=== PATIENT | male | born 2000 | race Caucasian/White ===

== ENCOUNTER → 2024-09-21 | Outpatient (CLI) | payer SELFPAY, BC ==
--- NOTE | 2024-09-21 08:45 | US_ITS ---
PROCEDURE: Right upper quadrant ultrasound REASON FOR EXAM: ABDOMINAL PAIN COMPARISON: None FINDINGS: Liver: Grossly normal size and echotexture. Gallbladder: No stones, sludge, wall thickening or tenderness. Common bile duct: Normal measuring . Pancreas: Visualized portions are sonographically unremarkable. Nonspecific mild right hydronephrosis. US/Abdomen Limited IMPRESSION: Nonspecific mild right hydronephrosis. Please correlate and consider further a ssessment with CT if indicated. Reading Location: [facility]
== END | disposition home or self-care (01) ==
PROVIDERS: Referring Provider Nurse Practitioner Acute Care; Visit Provider Nurse Practitioner Acute Care
DX: R10.13 Epigastric pain (principal); R10.11 Right upper quadrant pain
CPT/HCPCS: 76705

== ENCOUNTER → 2024-10-12 | Outpatient (CLI) | payer BC, SELFPAY ==
[2024-10-12 08:42] LABS: Anion Gap 9 (5-15); BUN 19 mg/dL (4-19); Calcium,Total 9.7 mg/dL (7.6-11.0); Chloride 104 mmol/L (98-108); Cholesterol 123 mg/dL (<=200); Creatinine, Serum 0.88 mg/dL (0.70-1.20); EST Glomerular Filtration Rate 122 (>60); Glucose 99 mg/dL (70-99); High Density Lipoprotein 50 mg/dL; Low Density Lipoprotein Calc. 68 mg/dL; Potassium 4.3 mmol/L (3.3-5.1); Sodium Level 140 mmol/L (133-145); Triglycerides 25 mg/dL; Very Low Density Lipoprotein 5 mg/dL (5-40); cholesterol:hdl ratio screen 2.47
== END | disposition home or self-care (01) ==
LOC: LAB 07:32
PROVIDERS: PCP Family Medicine; Referring Provider Family Medicine; Visit Provider Family Medicine
DX: Z00.00 Encounter for general adult medical examination without abnormal findings (principal)
CPT/HCPCS: 36415; 80048; 80061

== ENCOUNTER → 2024-11-05 | Outpatient (CLI) | payer BC, SELFPAY ==
[2024-11-05 17:27] LABS: AST(SGOT) 25 U/L (<=37); Alanine Aminotransfer ALT/SGPT 27 U/L (<=46); Albumin, Serum 4.5 g/dL (3.5-5.0); Alkaline Phosphatase 72 U/L (40-129); Bilirubin, Direct 0.26 mg/dL (0.00-0.30); Globulin 2.2 g/dL (2.2-4.2); Protein, Total 6.8 g/dL (5.9-8.4); Total Bilirubin 0.57 mg/dL (0.00-1.30)
== END | disposition home or self-care (01) ==
LOC: LAB 15:48
PROVIDERS: PCP Family Medicine; Referring Provider Nurse Practitioner Acute Care; Visit Provider Nurse Practitioner Acute Care
DX: R10.13 Epigastric pain (principal); R12 Heartburn
CPT/HCPCS: 36415; 80076

== ENCOUNTER 2024-11-19 05:34 | Day surgery (SDC) | payer BC, SELFPAY ==
[2024-11-19] VITALS (7 sets, daily range): BP systolic 106–122; BP diastolic 66–78; PULSE 56–66; RESP 14–16; TEMP 36.1–36.8; O2SAT 97–100; BMI 24.9
[2024-11-19] MEDS: Lactated Ringers 1,000 ML 15 ML IV (06:07)
--- NOTE | 2024-11-19 06:14 | PRE.ANES_ITS ---
ASA Classification* ASA Classification ASA Classification: 2 Assessment & Plan Anesthesia* Anesthesia Assessment Anesthesia Assessment: Discussed sedation and/or anesthesia options, risks, benefits, and alternatives with patient/parents/legal guardian/POA. Questions invited. The patient/parents/legal guardian/POA seems to understand and agrees to proceed with anesthesia plan. Reviewed the physical assessment, medical history, allergy history and patient home medications list prior to surgery/procedure/anesthetic and documented any changes. Performed airway and anesthesia risk assessments. Anesthesia Type Anesthesia Type: MAC History Source History Obtained from:: Patient Anesthesia Focused Assessment* Temperature: 98.2 F Pulse Rate: 66 Blood Pressure: 122/78 Respiratory Rate: 16 Pulse Ox: 100 Oxygen Delivery Method: Room Air Airway Assessment Mouth opens: >3 cm Mallampati Score: II Teeth Condition: Intact Focused Labs Anesthesia Preop lab: CBC CHEMISTRY Potassium 4.3 mmol/L (3.3-5.1) 10/12/24 07:45 10/12/24 Sodium 140 mmol/L (133-145) 10/12/24 07:45 10/12/24 BUN 19 mg/dL (4-19) 10/12/24 07:45 10/12/24 Creatinine 0.88 mg/dL (0.70-1.20) 10/12/24 07:45 10/12/24 Glucose 99 mg/dL (70-99) 10/12/24 07:45 10/12/24 COAG Pre-Assessment Diagnosis/Proposed Procedure Planned Operative Procedure(s): egd Anesthesia History 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 When Was Last Pacemaker Check QUESTION #4 FULL TEXT: You/Your Family Experience fever (hyperthermia) with Anesthesia Last Oral Intake Last Oral intake: Last Oral Intake NPO since 00:00 11/19/24 06:09 Meds taken in AM with sips of Yes 11/19/24 06:09 water? Meds patient instructed to omeprazole 11/19/24 06:09 take am of surgery PONV PONV - production packager: PONV - production packager Female No 11/14/24 08:28 HX of Motion Sickness No 11/14/24 08:28 HX of N/V After Surgery No 11/14/24 08:28 Non-Smoker Yes 11/14/24 08:28 Duration of Surgery greater No 11/14/24 08:28 than 60 minutes Number of Risk Factors 1 11/14/24 08:28 PONV Score Low Risk 11/14/24 08:28 Height & Weight Height & Weight: Anesthesia: Height & Weight Height 6 ft 3 in 11/19/24 06:09 Weight: 90.5 kg 11/19/24 06:09 Body Mass Index (BMI) 24.9 11/19/24 06:09 Respiratory Assessment Respiratory Assessment - production packager: Respiratory Tract Infection Hx - production packager Hx Respiratory Tract Infection No 11/14/24 08:28 STOP Sleep Apnea STOP Sleep Apnea - production packager: STOP Sleep Apnea - production packager Hx Hypertension No 11/14/24 08:28 Hx Sleep Apnea No 11/14/24 08:28 CPAP BIPAP Do you snore loudly (louder No 11/14/24 08:28 than talking or can be heard Do you often feel tired/ No 11/14/24 08:28 fatigued/ sleepy during daytime? Has anyone observed you stop No 11/14/24 08:28 breathing during sleep? STOP Results Negative 11/14/24 08:28 QUESTION #5 FULL TEXT : Do you snore loudly (louder than talking or can be heard through closed doors)? 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 Specify any problems Hx of Preganancy in last 3 N/A 11/14/24 08:28 Months Nurse Filling Out Transfusion [facility] 11/14/24 08:28 & Questions: Date: 11/14/24 11/14/24 08:28 Time: 08:29 11/14/24 08:28 Patient unable to answer at this time (ie. confused, unrespo /Reproduction History /Reproductive History - production packager: /Reproductive Hx- production packager Hx Now No 11/14/24 08:28 Gestational Age (in weeks): EDC: Hx Hx Para Hx Section SAB No 11/14/24 08:28 Active Medications Active Medications: Current Medications Generic Name Dose Route Start Last Admin Trade Name Freq PRN Reason Stop Dose Admin Lactated Ringer's 1,000 mls @ 15 mls/hr 11/19/24 05:45 11/19/24 06:07 IV 15 mls/hr .Q48H UMA Administration PFSH Medical History Gastric reflux Non-smoker Home Medications ?Medication ?Instructions ?Recorded ?Last Taken ?Type omeprazole 40 mg capsule,delayed 40 mg PO QDAY #90 cap s 11/05/24 11/19/24 Rx release Allergy/AdvReac Type Severity Reaction Status Date / Time azithromycin Allergy Other Verified 11/14/24 08:28 Surgical History History of ankle surgery Social History Smoking Status: Never smoker alcohol intake: never Review of Systems (Anesthesia) ROS Narrative System reviewed and no additional complaints, except as documented. Physical Exam Const alert and oriented x3 Orientation / Consciousness: awake Resp normal respiratory effort Cardio regular rate
--- NOTE | 2024-11-19 06:23 | PRE.ANES_ITS ---
ASA Classification* ASA Classification ASA Classification: 2 Assessment & Plan Anesthesia* Anesthesia Assessment Anesthesia Assessment: Discussed sedation and/or anesthesia options, risks, benefits, and alternatives with patient/parents/legal guardian/POA. Questions invited. The patient/parents/legal guardian/POA seems to understand and agrees to proceed with anesthesia plan. Reviewed the physical assessment, medical history, allergy history and patient home medications list prior to surgery/procedure/anesthetic and documented any changes. Performed airway and anesthesia risk assessments. Anesthesia Type Anesthesia Type: MAC Anesthesia Focused Assessment* Temperature: 98.2 F Pulse Rate: 66 Blood Pressure: 122/78 Respiratory Rate: 16 Pulse Ox: 100 Airway Assessment Mouth opens: >3 cm Mallampati Score: II Focused Labs Anesthesia Preop lab: CBC CHEMISTRY Potassium 4.3 mmol/L (3.3-5.1) 10/12/24 07:45 10/12/24 Sodium 140 mmol/L (133-145) 10/12/24 07:45 10/12/24 BUN 19 mg/dL (4-19) 10/12/24 07:45 10/12/24 Creatinine 0.88 mg/dL (0.70-1.20) 10/12/24 07:45 10/12/24 Glucose 99 mg/dL (70-99) 10/12/24 07:45 10/12/24 COAG Pre-Assessment Diagnosis/Proposed Procedure Planned Operative Procedure(s): egd Anesthesia History 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 When Was Last Pacemaker Check QUESTION #4 FULL TEXT: You/Your Family Experience fever (hyperthermia) with Anesthesia Last Oral Intake Last Oral intake: Last Oral Intake NPO since 00:00 11/19/24 06:09 Meds taken in AM with sips of Yes 11/19/24 06:09 water? Meds patient instructed to omeprazole 11/19/24 06:09 take am of surgery PONV PONV - director data architecture: PONV - director data architecture Female No 11/14/24 08:28 HX of Motion Sickness No 11/14/24 08:28 HX of N/V After Surgery No 11/14/24 08:28 Non-Smoker Yes 11/14/24 08:28 Duration of Surgery greater No 11/14/24 08:28 than 60 minutes Number of Risk Factors 1 11/14/24 08:28 PONV Score Low Risk 11/14/24 08:28 Height & Weight Height & Weight: Anesthesia: Height & Weight Height 6 ft 3 in 11/19/24 06:09 Weight: 90.5 kg 11/19/24 06:09 Body Mass Index (BMI) 24.9 11/19/24 06:09 Respiratory Assessment Respiratory Assessment - director data architecture: Respiratory Tract Infection Hx - director data architecture Hx Respiratory Tract Infection No 11/14/24 08:28 STOP Sleep Apnea STOP Sleep Apnea - director data architecture: STOP Sleep Apnea - director data architecture Hx Hypertension No 11/14/24 08:28 Hx Sleep Apnea No 11/14/24 08:28 CPAP BIPAP Do you snore loudly (louder No 11/14/24 08:28 than talking or can be heard Do you often feel tired/ No 11/14/24 08:28 fatigued/ sleepy during daytime? Has anyone observed you stop No 11/14/24 08:28 breathing during sleep? STOP Results Negative 11/14/24 08:28 QUESTION #5 FULL TEXT : Do you snore loudly (louder than talking or can be heard through closed doors)? 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 Specify any problems Hx of Preganancy in last 3 N/A 11/14/24 08:28 Months Nurse Filling Out Transfusion [facility] 11/14/24 08:28 & Questions: Date: 11/14/24 11/14/24 08:28 Time: 08:29 11/14/24 08:28 Patient unable to answer at this time (ie. confused, unrespo /Reproduction History /Reproductive History - director data architecture: /Reproductive Hx- director data architecture Hx Now No 11/14/24 08:28 Gestational Age (in weeks): EDC: Hx Hx Para Hx Section SAB No 11/14/24 08:28 Active Medications Active Medications: Current Medications Generic Name Dose Route Start Last Admin Trade Name Freq PRN Reason Stop Dose Admin Lactated Ringer's 1,000 mls @ 15 mls/hr 11/19/24 05:45 11/19/24 06:07 IV 15 mls/hr .Q48H UMA Administration PFSH Medical History Gastric reflux Non-smoker Home Medications ?Medication ?Instructions ?Recorded ?Last Taken ?Type omeprazole 40 mg capsule,delayed 40 mg PO QDAY #90 cap s 11/05/24 11/19/24 Rx release Allergy/AdvReac Type Severity Reaction Status Date / Time azithromycin Allergy Other Verified 11/14/24 08:28 Surgical History History of ankle surgery Social History Smoking Status: Never smoker alcohol intake: never Review of Systems (Anesthesia) ROS Narrative System reviewed and no additional complaints, except as documented.
--- NOTE | 2024-11-19 06:30 | EGD_PTH ---
PATIENT: PITO ABREU LOC: [facility] U#:[id number] AGE/SX: 23/M ROOM: RE11/19/[address]: Dr. Addy Almanza DO : 2000 BED: DIS: 11/19/2024 SPEC #: [id number] RECD: 11/19/24 12:10 STATUS: ISATU LIGIA #: [id number] LEODAN: 11/19/24 06:[address]: Addy Almanza DEPT: SURGICAL PATHOLOGY RECD BY: Deyvi Phillips ENTERED: 11/19/24 13:06 SP TYPE: EGD BIOPSY MYA DR: Dr. Christo Field MD Tissues: A - Gastric mucous membrane B - Duodenum, NOS C - Esophagus, NOS Procedures: Surgery Specimen Level IV HEADER OPERATION: EGD with biopsies PRE-OP DIAGNOSIS: Nausea, heartburn, dyspepsia, right upper quadrant pain, epigastric pain TISSUE SUBMITTED: A- Gastric body biopsy, B- Duodenum biopsy, C- Random esophagus biopsy MICROSCOPIC DIAGNOSIS A. Stomach, gastric body, biopsy: * Oxyntic mucosa with mild chronic inflammation * No morphologic evidence of Helicobacter pylori organisms B. Small bowel, duodenum, biopsy: * Small bowel mucosa with no pathologic change C. Esophagus, random, biopsy: * Squamous epithelium with no pathologic change MICROSCOPIC DESCRIPTION Slides are reviewed. GROSS DESCRIPTION A. Received in fixative is one container labeled with the patient's name and designated Gastric body biopsy. The specimen consists of multiple irregular fragments of light schaeffer soft tissue that in aggregate measure 1.5 x 0.2 x 0.2 cm. The specimen is totally submitted in one cassette. B. Received in fixative is one container labeled with the patient's name and designated Duodenum biopsy. The specimen consists of multiple irregular fragments of light schaeffer soft tissue that in aggregate measure 1.6 x 0.3 x 0.2 cm. The specimen is totally submitted in one cassette. C. Received in fixative is one container labeled with the patient's name and designated Random esophagus biopsy. The specimen consists of multiple irregular fragments of light schaeffer soft tissue that in aggregate measure 1.3 x 0.3 x 0.2 cm. The specimen is totally submitted in one cassette. 11/19/2024 CPT:60783k0
--- NOTE | 2024-11-19 06:42 | PCM.HP.STD ---
HPI - General General Date of Admission: 11/19/24 Date of Service: 11/19/24 Chief Complaint: abdominal pain HPI Narrative 23y/o male presents with complaints of heartburn, RUQ and epigastric pain. He was seen in urgent care two weeks ago with worsening of symptoms and completed a two week course of omeprazole 20mg daily. He reports a resolution in heartburn, but is continuing to experience bloating and belching. He has made significant dietary modifications. I have scheduled him for an ABD US and he will start omeprazole 40mg daily. He will follow-up in 8 weeks. Patient Instructions: Start Omeprazole 40mg daily - 8 weeks of therapy Complete ABD US Follow-up in 8 weeks If symptoms are persisting proceed with EGD If symptoms have resolved will plan to taper PPI and only proceed with EGD if symptoms return ABD US 09/21/2024 Nonspecific mild right hydronephrosis. Please correlate and consider further assessment with CT if indicated. - since starting Omeprazole he reports 50% improvement in HB and belching - symptoms are worse the first couple of hours after eating - larger meals cause more symptoms - c/o bloating but not as severe - reports resolution of RUQ pain - uncertain of trigger - he is making dietary modifications - avoiding spicy foods, red meat, OJ - denies any caffeine intake - makes symptoms much worse - avoids alcohol as this is also a trigger for symptoms - was drinking <12 pack a week, occasional crown and coke - denies any alcohol in the past 4 months - reports his weight is down 40lbs in the past 4 months since symptoms hit their peak ---- symptoms began summer/fall 2023 - nausea has improved, denies any emesis - reports a couple years ago he had lower esophageal dysphagia, but quit drinking alcohol and symptoms resolved in a month - states at this time he was drinking fantasma than a 12 pack a week - weight is down 17lbs in past 2 months - denies any change in bowel habits - denies any melena - denies any [facility] Medical History Gastric reflux Non-smoker Home Medications ?Medication ?Instructions ?Recorded ?Last Taken ?Type omeprazole 40 mg capsule,delayed 40 mg PO QDAY #90 caps 11/05/24 11/19/24 Rx release Allergy/AdvReac Type Severity Reaction Status Date / Time azithromycin Allergy Other Verified 11/14/24 08:28 Surgical History History of ankle surgery Social History Smoking Status: Never smoker alcohol intake: never ROS Constitutional Constitutional: Denies fatigue, fever(s), poor appetite, weight gain or weight loss Gastrointestinal Gastrointestinal: Denies belching, bloating, change in bowel habits, change in stool character, chewing difficulty, coffee ground emesis, constipation, cramping, diarrhea, dyspepsia, dysphagia, early satiety, excessive flatus, fecal incontinence, heartburn, hematemesis, hematochezia, hemorrhoids, loose stools, melena, nausea, odynophagia, rectal bleeding, tenesmus, vomiting or weight changes Vital Signs Vital Signs Vital Signs: 11/19/24 06:08 11/19/24 06:09 11/19/24 06:23 Temperature 98.2 F 98.2 F Temperature Source Temporal Pulse Rate 66 66 Respiratory Rate 16 16 Respiratory Pattern Normal Blood Pressure 122/78 H 122/78 H Blood Pressure Mean 92 Blood Pressure Source Monitor Blood Pressure Position Sitting Blood Pressure Location Left Arm Pulse Ox 100 100 Oxygen Delivery Method Room Air Room Air 11/19/24 06:24 Temperature 98.2 F Temperature Source Pulse Rate 66 Respiratory Rate 16 Respiratory Pattern Blood Pressure 122/78 H Blood Pressure Mean Blood Pressure Source Blood Pressure Position Blood Pressure Location Pulse Ox 100 Oxygen Delivery Method Weight Weight: 199 lb 8.293 oz Body Mass Index (BMI) 24.9 Physical Exam Const alert, oriented x3, no apparent distress and healthy appearing General Appearance: cooperative GI normal to inspection, nondistended, normoactive bowel sounds, soft to palpation, non-tender and non-distended Percussion: normal to percussion Rectal Exam: deferred Assessment & Plan Assessment/Plan (1) Nausea: (2) Heartburn: (3) Dyspepsia: (4) RUQ pain: (5) Epigastric pain: PLAN: Assessment and Plan Assessment and Plan (1) Epigastric pain: Status: Acute (2) Dyspepsia: Status: Acute (3) Heartburn: Status: Acute (4) Nausea: Status: Acute Orders: Orders Liver Profile Today R10.13 - Epigastric pain, R12 - Heartburn Medications: Refilled omeprazole take 30 minutes before breakfast every morning 40 mg PO QDAY 90 caps 0RF Plan 23-year-old male presents for 8-week follow-up of heartburn, dyspepsia, epigastric and RUQ pain. He was last seen in the office on 09/09/2024 and started on omeprazole 40 mg daily. Abdominal ultrasound was performed 09/21/2024 and revealed nonspecific mild right hydronephrosis and he was referred to primary care for follow-up. He remains on omeprazole 40 mg daily and reports resolution of RUQ pain. However he is continuing to experience epigastric pain, nausea, heartburn and dyspepsia with a 50% improvement on PPI daily. His weight is down 17 pounds in the past 8 weeks, with a reported 40 pound weight loss in the past 4 months. He reports making dietary modifications to alleviate symptoms. He also reports he was drinking approximately a 12 pack of beer weekly which he discontinued 4 months ago. He will remain on a PPI daily and proceed with a EGD. We have discussed the risks associated with chronic alcohol use, and I have recommended he continue to abstain from alcohol intake. He will complete a liver panel today. Patient Instructions: Continue PPI daily Continue to abstain from all alcohol intake Avoid trigger foods Proceed with EGD
--- NOTE | 2024-11-19 07:04 | OP.EGD_ITS ---
Patient Name: Ted Leahy Procedure Date: 11/19/2024 6:30 AM Date of : 2000 Age: 23 Procedure: Upper GI endoscopy Indications: Epigastric abdominal pain, Abdominal pain in the right upper quadrant, Functional Dyspepsia Providers: Addy Almanza DO Referring MD: Addy Almanza DO Medicines: Monitored Anesthesia Care Patient Profile: This is a 23 year old male. Refer to note in patient chart for documentation of history and physical. Patient has symptoms of acute abdominal cramping, acute right upper quadrant abdominal pain and acute dyspepsia. Complications: No immediate complications. Procedure: Pre-Anesthesia Assessment: - Prior to the procedure, a History and Physical was performed, and patient medications and allergies were reviewed. The patient is competent. The risks and benefits of the procedure and the sedation options and risks were discussed with the patient. All questions were answered and informed consent was obtained. Patient identification and proposed procedure were verified by the physician in the pre-procedure area. Mental Status Examination: alert and oriented. Airway Examination: normal oropharyngeal airway and neck mobility. Respiratory Examination: clear to auscultation. CV Examination: normal. ASA Grade Assessment: II - A patient with mild systemic disease. After reviewing the risks and benefits, the patient was deemed in satisfactory condition to undergo the procedure. The anesthesia plan was to use monitored anesthesia care (MAC). Immediately prior to administration of medications, the patient was re-assessed for adequacy to receive sedatives. The heart rate, respiratory rate, oxygen saturations, blood pressure, adequacy of pulmonary ventilation, and response to care were monitored throughout the procedure. The physical status of the patient was re-assessed after the procedure. After obtaining informed consent, the endoscope was passed under direct vision. Throughout the procedure, the patient's blood pressure, pulse, and oxygen saturations were monitored continuously. The Endoscope was introduced through the mouth, and advanced to the third part of the duodenum. Small bowel enteroscopy was deemed necessary. The upper GI endoscopy was accomplished without difficulty. The patient tolerated the procedure well. Scope In: 6:54:49 AM Scope Out: 6:58:28 AM Total Procedure Duration Time 0 hours 3 minutes 39 seconds Findings: No gross lesions were noted in the entire esophagus. Biopsies were obtained from the proximal and distal esophagus with cold forceps for histology of suspected eosinophilic esophagitis. Diffuse mildly erythematous mucosa without bleeding was found in the entire examined stomach. Biopsies were taken with a cold forceps for histology. Verification of patient identification for the specimen was done. Estimated blood loss was minimal. Biopsies were taken with a cold forceps for Helicobacter pylori testing. Verification of patient identification for the specimen was done. Estimated blood loss was minimal. No gross lesions were noted in the entire examined duodenum. Biopsies were taken with a cold forceps for histology. Verification of patient identification for the specimen was done. Estimated blood loss was minimal. Impression: - No gross lesions in the entire esophagus. - Erythematous mucosa in the stomach. Biopsied. - No gross lesions in the entire examined duodenum. Biopsied. - Biopsies were taken with a cold forceps for evaluation of eosinophilic esophagitis. Recommendation: - Discharge patient to home. - Resume previous diet. - Continue present medications. - Await pathology results. Procedure Code(s): --- Professional --- 47607, Small intestinal endoscopy, enteroscopy beyond second portion of duodenum, not including ileum; with biopsy, single or multiple CPT copyright 2021 [employer]. All rights reserved. The codes documented in this report are preliminary and upon strategic planning manager review may be revised to meet current compliance requirements. Addy Almanza DO 11/19/2024 7:03:42 AM This report has been signed electronically. Number of Addenda: 0 Note Initiated On: 11/19/2024 6:30 AM
--- NOTE | 2024-11-19 07:04 | OP.CCLET_ITS ---
11/19/2024 Christo Field MD [address] [id number] Re : Upper GI endoscopy procedure for [facility] Dear Dr. Field This procedure was performed on Tuesday, November 19, 2024. My impressions and recommendations are as follows: Impressions : - No gross lesions in the entire esophagus. - Erythematous mucosa in the stomach. Biopsied. - No gross lesions in the entire examined duodenum. Biopsied. - Biopsies were taken with a cold forceps for evaluation of eosinophilic esophagitis. Recommendations : - Discharge patient to home. - Resume previous diet. - Continue present medications. - Await pathology results. My findings are described in the full procedure note, which is enclosed. If I can be of further assistance, please feel free to contact me at . Sincerely, Addy Almanza, 11/19/2024 7:03:42 AM This report has been signed electronically.
--- NOTE | 2024-11-19 07:09 | PCM.POST.ANE ---
Anesthesia: Postop Eval I Current Vital Signs Temperature: 97.1 F Pulse Rate: 57 Blood Pressure: 108/66 Respiratory Rate: 14 Pulse Ox: 97 Oxygen Delivery Method: Room Air Assessment Airway patent: Yes Spontaneous unlabored respirations: Yes Mental status: Asleep nausea: No Vomiting: No Anesthesia Complication: No Fluid Hydration Crystalloid volume administer (ml): 300 Total IV fluid infused: 300 Progress Note Anesthesia document: Postop Eval 1 completed: Yes
--- NOTE | 2024-11-19 08:20 | PCM.POSTANE2 ---
Anesthesia Postop Eval I Sum Postop Eval Completion status Anesthesia document: Postop Eval 1 completed: Yes Anesthesia Postop Eval I Summary Anesthesia Postop Eval I Summary: Anesthesia Postop Eval I: Assessment Summary Airway patent Yes 11/19/24 07:10 [email or web address] Spontaneous unlabored Yes 11/19/24 07:10 [email or web address] respirations Mental status Asleep 11/19/24 07:10 [email or web address] nausea No 11/19/24 07:10 [email or web address] Vomiting No 11/19/24 07:10 [email or web address] Anesthesia Postop Eval I: Fluid Summary Crystalloid volume administer 300 11/19/24 07:10 [email or web address] (ml) Colloids volume administered ( ml) Blood Product volume administered (ml) Total IV fluid infused 300 11/19/24 07:10 [email or web address] Anesthesia Postop Eval I: Summary Notes Anesthesia Complication No 11/19/24 07:10 [email or web address] Anesthesia Complication Comment: Post-operative progress note Anesthesia: Postop Eval II Evaluation Mental status: Awake and Calm Pain Level: 0 nausea: No Vomiting: No Complications Anesthesia Complication: No
== END 2024-11-19 07:51 | disposition home or self-care (01) ==
LOC: EN 05:40 → AC 05:41
PROVIDERS: PCP Family Medicine; Referring Provider Family Medicine; Visit Provider Internal Medicine Gastroenterology
PROC: 0DJ08ZZ Inspection of Upper Intestinal Tract, Via Natural or Artificial Opening Endoscopic (ICD-10-PCS; CPT 43235; principal; 2024-11-19 06:25)
DX: K31.89 Other diseases of stomach and duodenum (principal); R10.13 Epigastric pain; K21.9 Gastro-esophageal reflux disease without esophagitis; Z79.899 Other long term (current) drug therapy
CPT/HCPCS: 43239; 88305; J2405